=== PATIENT | male | born 1980 | race Caucasian/White ===

== ENCOUNTER 2021-07-21 14:30 | Emergency (ER) | payer BC ==
--- NOTE | 2021-07-21 15:19 | RAD REPORT ---
EXAM DESCRIPTION: CT - Stone Protocol - 07/21/2021 3:00 pm CLINICAL HISTORY: Abdominal pain. COMPARISON: None. TECHNIQUE: Computed axial tomography of the abdomen pelvis was obtained without oral or IV contrast. Lack of IV and oral contrast limits evaluation of solid organs, bowel, and vessels. Coronal reformat elle images were obtained and reviewed. All CT scans are performed using dose optimization technique as appropriate and may include automated exposure control or mA/KV adjustment according to patient size. FINDINGS: Tiny right renal calculus. . An ureteral calculus is not noted. A bladder calculus is not present. Calcified granuloma left lung The liver, spleen, pancreas and adrenals appear grossly normal There is no evidence of diverticulitis. The appendix appears normal Moderate bilateral inguinal hernias contain fat Small to moderate umbilical hernia IMPRESSION: Tiny nonobstructing right renal calculus Moderate bilateral inguinal hernias contain fat Small to moderate umbilical hernia
--- NOTE | 2021-07-21 15:58 | EDPHYS ---
Physician Documentation [facility] Name: Tom Luz Age: 41 yrs Sex: Male : 1980 Arrival Date: 07/21/2021 Time: 14:33 Bed Treatment Private MD: ED Physician Justo Rodrigues HPI: 07/21 15:42 This 41 yrs old Male presents to ER via Ambulatory with complaints of Hernia symptoms. kb 15:42 The patient presents with tightening in groin area. Onset: The symptoms/episode kb began/occurred last week. The symptoms do not radiate. Associated signs and symptoms: none. The symptoms are described as intermittent. Modifying factors: The symptoms are alleviated by nothing, the symptoms are aggravated by straining. Severity of pain: At its worst the pain was denies pain. The patient has not experienced similar symptoms in the past. The patient has not recently seen a physician. Pt states he has a tightening feeling when he strains, coughs or lifts anything in his groin. Denies any pain. States he just wanted to get checked out for a hernia. Historical: - Allergies: 14:44 No Known Allergies; aa5 - PMHx: 14:44 adhd; Hernia; aa5 - PSHx: 14:44 right arm with metal; aa5 - Immunization history:: Adult Immunizations unknown. - Social history:: Smoking status: Reported history of juuling and/or vaping. ROS: 15:38 Constitutional: Negative for fever, chills, and weight loss. kb 15:38 Abdomen/GI: Positive for tightening sensation in groin that is intermittent. 15:38 All other systems are negative. Exam: 15:41 Constitutional: This is a well developed, well nourished patient who is awake, alert, kb and in no acute distress. Head/Face: Normocephalic, atraumatic. ENT: Moist Mucous membranes Cardiovascular: Regular rate and rhythm with a normal S1 and S2. No gallops, murmurs, or rubs. No pulse deficits. Respiratory: Respirations even and unlabored. No increased work of breathing. Talking in full sentences Abdomen/GI: Soft, non-tender. No distention Skin: Warm, dry with normal turgor. Normal color. MS/ Extremity: Pulses equal, no cyanosis. Neurovascular intact. Full, normal range of motion. Neuro: Awake and alert, GCS 15, oriented to person, place, time, and situation. Moves all extremities. Normal gait. Psych: Awake, alert, with orientation to person, place and time. Behavior, mood, and affect are within normal limits. Vital Signs: 14:41 BP 142 / 76; Pulse 75; Resp 18; Temp 98.1(TE); Pulse Ox 100% on R/A; Weight 90.72 kg aa5 (R); Height 5 ft. 11 in. (180.34 cm) (R); 14:41 Body Mass Index 27.89 (90.72 kg, 180.34 cm) aa5 MDM: 14:47 Patient medically screened. kb 15:38 Data reviewed: vital signs, nurses notes. Data interpreted: Pulse oximetry: on room air kb is 100 %. Interpretation: normal. Counseling: I had a detailed discussion with the patient and/or guardian regarding: the historical points, exam findings, and any diagnostic results supporting the discharge/admit diagnosis, radiology results, the need for outpatient follow up, a general surgeon, to return to the emergency department if symptoms worsen or persist or if there are any questions or concerns that arise at home. 07/21 14:48 Order name: CT Stone Protocol; Complete Time: 15:21 kb Administered Medications: No medications were administered Disposition: 16:49 Co-signature as Attending Physician, Justo Rodrigues MD I agree with the assessment and kdr plan of care. Disposition Summary: 07/21/21 15:57 Discharge Ordered Location: Home kb Condition: Stable kb Diagnosis - Umbilical hernia without obstruction or gangrene kb - Other specified abdominal hernia without obstruction or gangrene kb Followup: kb - With: Emergency Department - When: As needed - Reason: Worsening of condition Followup: kb - With: Private Physician - When: 2 - 3 days - Reason: Recheck today's complaints, Continuance of care, Re-evaluation by your physician Discharge Instructions: - Discharge Summary Sheet kb - Hernia, Adult, [id number] kb Forms: - Medication Reconciliation Form kb - Thank You Letter kb - Antibiotic Education kb - Prescription Opioid Use kb Signatures: Dispatcher [employer] EDMS Chanda Farley, DEVON-C DEVON-Ckb Rittger, Justo, MD MD kdr Soto, Mariama, RN RN aa5
--- NOTE | 2021-07-21 15:58 | ER ---
Nurse's Notes [facility] Name: Tom Luz Age: 41 yrs Sex: Male : 1980 Arrival Date: 07/21/2021 Time: 14:33 Bed Treatment Private MD: Diagnosis: Umbilical hernia without obstruction or gangrene;Other specified abdominal hernia without obstruction or gangrene Presentation: 07/21 14:41 Chief complaint: Patient states: "I've been having pain on my lower abdomen every time aa5 I move, cough, or strain". Pt reports pain to RLQ. Coronavirus screen: At this time, the client does not indicate any symptoms associated with coronavirus-19. Ebola Screen: No symptoms or risks identified at this time. Initial Sepsis Screen: Does the patient meet any 2 criteria? No. Patient's initial sepsis screen is negative. Does the patient have a suspected source of infection? No. Patient's initial sepsis screen is negative. Risk Assessment: Do you want to hurt yourself or someone else? Patient reports no desire to harm self or others. Onset of symptoms was July 2021. 14:41 Acuity: DAVE 3 aa5 14:41 Method Of Arrival: Ambulatory aa5 Triage Assessment: 14:45 General: Appears comfortable, Behavior is calm, cooperative. Pain: Complains of pain in aa5 right lower quadrant Pain currently is 0 out of 10 on a pain scale. Quality of pain is described as aching, Is intermittent, Aggravated by movement, pt reports pain only with movement. EENT: No signs and/or symptoms were reported regarding the EENT system. Neuro: Level of Consciousness is awake, alert, obeys commands, Oriented to person, place, time, situation. Cardiovascular: Patient's skin is warm and dry. Respiratory: Airway is patent Respiratory effort is even, unlabored, Respiratory pattern is regular, symmetrical. GI: Abdomen is round non-distended, Bowel sounds present X 4 quads. Abd is soft and non tender X 4 quads. Patient currently denies diarrhea, nausea, vomiting. : No signs and/or symptoms were reported regarding the genitourinary system. Derm: Skin is pink, warm \\T\\ dry. Musculoskeletal: Range of motion: intact in all extremities. Historical: - Allergies: 14:44 No Known Allergies; aa5 - PMHx: 14:44 adhd; Hernia; aa5 - PSHx: 14:44 right arm with metal; aa5 - Immunization history:: Adult Immunizations unknown. - Social history:: Smoking status: Reported history of juuling and/or vaping. Screenin:21 Abuse screen: Denies threats or abuse. Denies injuries from another. Nutritional iw screening: No deficits noted. Tuberculosis screening: No symptoms or risk factors identified. Fall Risk None identified. Assessment: 16:21 General: Appears in no apparent distress. Behavior is calm, cooperative. Pain:. Neuro: iw Harvey Agitation-Sedation Scale (RASS): Level of Consciousness is awake, alert, obeys commands, Moves all extremities. Derm: Skin is intact, is healthy with good turgor. Musculoskeletal: Range of motion: intact in all extremities. Vital Signs: 14:41 BP 142 / 76; Pulse 75; Resp 18; Temp 98.1(TE); Pulse Ox 100% on R/A; Weight 90.72 kg aa5 (R); Height 5 ft. 11 in. (180.34 cm) (R); 14:41 Body Mass Index 27.89 (90.72 kg, 180.34 cm) aa5 ED Course: 14:33 Patient arrived in ED. [id number] 14:39 Chanda Farley FNP-C is [facility]. kb 14:39 Justo Rodrigues MD is Attending Physician. kb 14:41 Arm band placed on. aa5 14:43 Triage completed. aa5 14:46 Mariama Soto, RN is Primary Nurse. aa5 15:02 CT Stone Protocol In Process Unspecified. EDMS 16:22 Patient has correct armband on for positive identification. iw 16:22 No provider procedures requiring assistance completed. Patient did not have IV access iw during this emergency room visit. Administered Medications: No medications were administered Medication: 16:22 VIS not applicable for this client. iw Outcome: 15:57 Discharge ordered by . kb 16:22 Discharged to home ambulatory. iw 16:22 Condition: good 16:22 Discharge instructions given to patient, Instructed on discharge instructions, follow up and referral plans. Demonstrated understanding of instructions, follow-up care. 16:22 Patient left the ED. iw Signatures: Dispatcher [employer] EDMT Chanda Farley FNP-C FNP-Charlotte Ramires RN RN iw Mariama Soto RN RN aa5 Sylvia Billingsley [email or web address] Corrections: (The following items were deleted from the chart) 18:40 14:45 GI: No signs and/or symptoms were reported involving the gastrointestinal system. aa5 aa5
[2021-07-21 16:26] VITALS: BP 142/76; TEMP 98.1; O2SAT 100
== END 2021-07-21 16:22 | disposition home or self-care (01) ==
LOC: ER 14:30
DX: K42.9 Umbilical hernia without obstruction or gangrene (principal); K45.8 Other specified abdominal hernia without obstruction or gangrene
CPT/HCPCS: 74176; 76377; 99283